=== PATIENT | male | born 1960 | race Caucasian/White ===

== ENCOUNTER 2022-01-23 14:54 | Inpatient (IN) | payer OTHER ==
[~2022-01-23] VITALS: Ht 185.4 cm; Wt 110.2 kg
[2022-01-23 16:37] LABS: Influenza A, PCR NEGATIVE (NEGATIVE); Influenza B, PCR NEGATIVE (NEGATIVE); Resp Syncytial Virus, PCR NEGATIVE (NEGATIVE); SARS-Cov-2 (COVID-19) PCR, MMC NEGATIVE (NEGATIVE)
[2022-01-23 17:09] LABS: BASOPHILS ABSOLUTE AUTO 0.05 K/mm3 (0.00-0.23); BASOPHILS PERCENT AUTO 1 % (0-2); EOSINOPHILS ABSOLUTE AUTO 0.05 K/mm3 (0.00-0.68); EOSINOPHILS PERCENT AUTO 1 % (0-6); Hematocrit 44.9 % (37.0-53.0); Hemoglobin 15.6 g/dL (13.5-17.5); IMMATURE GRAN ABSOLUTE AUTO 0.09 K/mm3 (0.00-0.10); IMMATURE GRAN PERCENT AUTO 1 % (0-1); LYMPHOCYTES ABSOLUTE AUTO 1.51 K/mm3 (0.84-5.20); LYMPHOCYTES PERCENT AUTO 17 % (21-46); MONOCYTES ABSOLUTE AUTO 0.49 K/mm3 (0.16-1.47); MONOCYTES PERCENT AUTO 6 % (4-13); Mean Corpuscular HGB 31.5 pg (26.0-34.0); Mean Corpuscular HGB Conc 34.7 g/dL (31.5-36.5); Mean Corpuscular Volume 91 fL (80-100); Mean Platelet Volume 11.1 fL (9.1-12.4); NEUTROPHILS ABSOLUTE AUTO 6.73 K/mm3 (1.96-9.15); NEUTROPHILS PERCENT AUTO 75 % (41-73); Platelet Count 230 K/mm3 (150-400); RDW Coefficient Variation 13.4 % (11.7-14.2); RDW Standard Deviation 44.6 fL (35.1-46.3); Red Blood Cell Count 4.96 M/mm3 (4.30-5.90); White Blood Cell Count 8.92 K/mm3 (4.00-11.30)
[2022-01-23 17:27] LABS: Albumin, Blood 3.5 g/dL (3.4-5.0); Albumin/Globulin Ratio 0.9 (0.8-1.8); Bilirubin, Total 0.8 mg/dL (0.1-1.0); Bun/Creatinine Ratio 18.3 (12.0-20.0); Calcium, Blood 9.2 mg/dL (8.5-10.1); Creatinine, Blood 1.97 mg/dL (0.60-1.20); Globulin, Blood 3.8 g/dL (2.2-4.0); Potassium, Blood 3.9 mmol/L (3.5-5.5); Total Protein, Blood 7.3 g/dL (6.4-8.2)
[2022-01-23 18:55] LABS: Source, Urine Clean Catch
[2022-01-23 18:59] LABS: Appearance, Urine Clear (Clear); Bilirubin, Urine Neg (Neg); Blood, Urine Neg (Neg); Color, Urine Yellow (P-Yellow); Glucose Qualitative, Urine 4+ (Neg); Ketones, Urine Neg (Neg); Leukocyte Esterase, Urine Neg (Neg); Nitrite, Urine Neg (Neg); Protein, Urine Neg (Neg); Specific Gravity, Urine 1.015 (1.003-1.022); Urobilinogen, Urine NORM (Normal)
[2022-01-23 20:34] LABS: Base Excess Venous 7.7 mmol/L; Bicarbonate Venous 29.2 mmol/L (24.0-30.0); PCO2 Venous 59.2 mmHg (38-42); pH Blood Venous 7.36 (7.34-7.37)
[2022-01-23] MEDS ORDERED: HYDCHL12.5 PO (23:24)
[2022-01-23] MEDS ORDERED: AMLO10 PO (23:24)
[2022-01-23] MEDS ORDERED: CARV25 PO (23:24)
[2022-01-23] MEDS ORDERED: EUTHYROX125 MCG PO (23:25)
[2022-01-23] MEDS ORDERED: LOSA50 PO (23:25)
[2022-01-23] MEDS ORDERED: ALBU90OI INH (23:26)
[2022-01-23] MEDS ORDERED: NAPROXEN125 MG/5 M PO (23:26)
[2022-01-24 00:58] LABS: Anion Gap 8 mmol/L (6-16); Blood Urea Nitrogen 35 mg/dL (8-24); Bun/Creatinine Ratio 20.2 (12.0-20.0); CO2, Blood 29 mmol/L (21-32); Calcium, Blood 8.1 mg/dL (8.5-10.1); Chloride, Blood 89 mmol/L (98-108); Cholesterol 241 mg/dL (50-200); Creatinine, Blood 1.73 mg/dL (0.60-1.20); Glomerular Filtration Rate 44 (60-); Glucose, Blood 479 mg/dL (70-99); Magnesium, Blood 2.8 mg/dL (1.6-2.4); Phosphorus, Blood 3.1 mg/dL (2.5-4.9); Potassium, Blood 2.9 mmol/L (3.5-5.5); Sodium, Blood 126 mmol/L (136-145)
[2022-01-24 01:12] LABS: CHOL/HDL RATIO Unable to Calculate; LDL/HDL RATIO Unable to Calculate; Low Density Lipoprotein Chol Unable to Calculate mg/dL (0-110); Triglycerides 1275 mg/dL (30-160); Very Low Density Lipoprot Chol Unable to Calculate mg/dL (6-32)
[2022-01-24 04:11] LABS: BASOPHILS ABSOLUTE AUTO 0.05 K/mm3 (0.00-0.23); BASOPHILS PERCENT AUTO 1 % (0-2); EOSINOPHILS ABSOLUTE AUTO 0.07 K/mm3 (0.00-0.68); EOSINOPHILS PERCENT AUTO 1 % (0-6); Hemoglobin 13.4 g/dL (13.5-17.5); IMMATURE GRAN ABSOLUTE AUTO 0.09 K/mm3 (0.00-0.10); IMMATURE GRAN PERCENT AUTO 1 % (0-1); LYMPHOCYTES ABSOLUTE AUTO 1.44 K/mm3 (0.84-5.20); LYMPHOCYTES PERCENT AUTO 19 % (21-46); MONOCYTES ABSOLUTE AUTO 0.44 K/mm3 (0.16-1.47); MONOCYTES PERCENT AUTO 6 % (4-13); Mean Corpuscular HGB 31.8 pg (26.0-34.0); Mean Corpuscular HGB Conc 35.3 g/dL (31.5-36.5); Mean Corpuscular Volume 90 fL (80-100); Mean Platelet Volume 10.8 fL (9.1-12.4); NEUTROPHILS ABSOLUTE AUTO 5.58 K/mm3 (1.96-9.15); NEUTROPHILS PERCENT AUTO 73 % (41-73); Platelet Count 187 K/mm3 (150-400); RDW Coefficient Variation 13.4 % (11.7-14.2); RDW Standard Deviation 44.1 fL (35.1-46.3); Red Blood Cell Count 4.21 M/mm3 (4.30-5.90); White Blood Cell Count 7.67 K/mm3 (4.00-11.30)
[2022-01-24 04:28] LABS: Bun/Creatinine Ratio 22.4 (12.0-20.0); Calcium, Blood 8.1 mg/dL (8.5-10.1); Creatinine, Blood 1.56 mg/dL (0.60-1.20); Potassium, Blood 2.9 mmol/L (3.5-5.5)
--- NOTE | 2022-01-24 04:51 | NUR ---
ASSUMTION OF CARE RECIEVED PT FROM ED AT 2350 FROM [facility]. INSULIN WAS AT 5 UNITS/HR.PT AMBULATED FROM STRETCHER TO BED PT IS PLEASENT AND APPRICIATIVE. SEE FLOW SHEET FOR FULL ASSESMENT
--- NOTE | 2022-01-24 05:56 | NUR ---
SHIFT SUMMARY pT NEWLY DIAGNOSED WITH DIABETIES CAME INTO ED AFTER SISTER TEST HIS BLOOD SUGAR AT HOME AND IT WAS > THAN THE MEETER COULD READ HIS BS WAS 707 ON IN ED. PT WAS STARTED ON AN INSULIN DRIP AND GIVEN A TOTAL OF 4L NS FOR HYDRATION PT POTASIUM IS BEING REPLACED IV AND PO WAS ALSO GIVEN. BS ON LAS T CHECK WAS 278 AND PLAN IS TO TRANSISTION HIM TO SQ AFTER HE FALLS BELOW 250. PT IS A&O X4 FITCH RESPIRATORY PT WAS PLACED ON 2L AND INCREASE TO 4L AFTER FALLING ASLEEP AND DESATURATIONS TO MID 80'S AND WITNESS PERIOD OF APNEA. HE CURRENTLY IS SATING 90. PT BLOOD PRESSURE HAS BEEN IN LOW 90'S SYSTOLIC BUT MAP HAS BEEN >65. WILL CONTINUE TO MONITOR AND REPORT OF TO ONCOMING SHIFT
[2022-01-24 08:21] LABS: Bun/Creatinine Ratio 20.1 (12.0-20.0); Calcium, Blood 8.5 mg/dL (8.5-10.1); Creatinine, Blood 1.54 mg/dL (0.60-1.20); Potassium, Blood 3.1 mmol/L (3.5-5.5)
--- NOTE | 2022-01-24 09:38 | NUR ---
ASSUMED CARE REPORT FROM TRINH KLEIN AT 0700. PT RESTING IN BED. WAKES c VERBAL STIMULI. FOLLOWS DIRECTIONS. DENIES COMPLAINTS. INSULIN GTT INFUSING AT SHIFT CHANGE, CHEMBG 215, CALLED DR LEE, INSULIN PLACED ON STANDBY, KYLE ORDERED. PT TOLERATED BREAKFAST WELL. DENIES N/V. ABD ROUND, SOFT, NON TENDER. SB ON MONITOR, RATE 50'S. BP STABLE. LUNGS CLEAR. INDEPENDENT IN ROOM. KCL INFUSING. WILL CONTINUE TO MONITOR.
[2022-01-24 13:23] LABS: Bun/Creatinine Ratio 22.8 (12.0-20.0); Calcium, Blood 8.5 mg/dL (8.5-10.1); Creatinine, Blood 1.49 mg/dL (0.60-1.20); Potassium, Blood 4.2 mmol/L (3.5-5.5)
--- NOTE | 2022-01-24 15:09 | NUR ---
Pt. is aweake in bed and welcomes my visit. Pts. sister is present. Pt. is alert and pleasant. Establish rapport and facilitate a life review. Pt. is new to the community and was asking many questions. Considered many issues of madisyn and belief. Pt. displayed evidence of engagement responsibility, and awareness of the serious nature of his "sudden" illness. Prayed with Pt. and sister. Both verbalized gratitude for the spiritual care visit.
[2022-01-24 16:19] LABS: Bun/Creatinine Ratio 23.7 (12.0-20.0); Calcium, Blood 8.8 mg/dL (8.5-10.1); Creatinine, Blood 1.35 mg/dL (0.60-1.20); Magnesium, Blood 2.7 mg/dL (1.6-2.4); Phosphorus, Blood 2.5 mg/dL (2.5-4.9); Potassium, Blood 4.3 mmol/L (3.5-5.5)
--- NOTE | 2022-01-24 17:18 | NUR ---
SHIFT SUMMARY/TRANSFER TO PCU NO ACUTE CHANGES THIS SHIFT, TRANSITIONED TO [facility] AND SS COVERAGE. INCREASED BOTH D/T ELEVATED CGB. PT TOLERATING MEALS WELL. INDEPENDENT IN ROOM. SR, RATE 70'S. BP STABLE, HTN MEDS HELD. REPORT TO ASPEN KLEIN. PT TRANSFERRED c ALL BELONGINGS.
--- NOTE | 2022-01-24 18:12 | NUR ---
Pt arrived to PCU 8; alert, oriented, and pleasantly conversant. Eating and drinking well.
--- NOTE | 2022-01-24 18:26 | NUR ---
CBG continues to trend down. Orders to cover ACHS.
--- NOTE | 2022-01-24 18:54 | NUR ---
MET WITH PT TANYA TO REVIEW POLST. PT IS MORE INTERESTED IN FILLING OUT AN ADVANCE DIRECTIVE TO MAKE VERY SPECIFIC CHOICES FOR HIMSELF REGARDING FEEDING TUBES, ETC AT END OF LIFE. HE WAS GETTING READY TO MOVE FROM ICU TO PCU AND FINISHING DINNER, SO WE'RE GOING TO MEET TOMORROW MORNING INSTEAD.
[2022-01-25 05:12] LABS: BASOPHILS ABSOLUTE AUTO 0.06 K/mm3 (0.00-0.23); BASOPHILS PERCENT AUTO 1 % (0-2); EOSINOPHILS ABSOLUTE AUTO 0.07 K/mm3 (0.00-0.68); EOSINOPHILS PERCENT AUTO 1 % (0-6); Hematocrit 41.8 % (37.0-53.0); Hemoglobin 14.2 g/dL (13.5-17.5); IMMATURE GRAN ABSOLUTE AUTO 0.13 K/mm3 (0.00-0.10); IMMATURE GRAN PERCENT AUTO 3 % (0-1); LYMPHOCYTES ABSOLUTE AUTO 1.48 K/mm3 (0.84-5.20); LYMPHOCYTES PERCENT AUTO 28 % (21-46); MONOCYTES ABSOLUTE AUTO 0.32 K/mm3 (0.16-1.47); MONOCYTES PERCENT AUTO 6 % (4-13); Mean Corpuscular HGB 31.6 pg (26.0-34.0); Mean Corpuscular Volume 93 fL (80-100); NEUTROPHILS ABSOLUTE AUTO 3.18 K/mm3 (1.96-9.15); NEUTROPHILS PERCENT AUTO 61 % (41-73); Platelet Count 187 K/mm3 (150-400); RDW Coefficient Variation 13.5 % (11.7-14.2); Red Blood Cell Count 4.49 M/mm3 (4.30-5.90); White Blood Cell Count 5.24 K/mm3 (4.00-11.30)
[2022-01-25 05:53] LABS: Albumin, Blood 2.7 g/dL (3.4-5.0); Albumin/Globulin Ratio 0.8 (0.8-1.8); Bilirubin, Total 0.4 mg/dL (0.1-1.0); Bun/Creatinine Ratio 19.1 (12.0-20.0); Calcium, Blood 8.9 mg/dL (8.5-10.1); Creatinine, Blood 1.31 mg/dL (0.60-1.20); Globulin, Blood 3.2 g/dL (2.2-4.0); Magnesium, Blood 2.3 mg/dL (1.6-2.4); Phosphorus, Blood 2.8 mg/dL (2.5-4.9); Potassium, Blood 3.2 mmol/L (3.5-5.5); Total Protein, Blood 5.9 g/dL (6.4-8.2)
--- NOTE | 2022-01-25 06:00 | NUR ---
NOC SHIFT SUMMARY PT SLEPT WELL OVERNIGHT, ORIENTED X4, VSS PER PT TREND ON RA. NO COMPLAINTS OF PAIN OR DISCOMFORT. UAL IN ROOM, USING URINAL APPROPRIATELY FOR ACCURATE I/Os. SR/SB ON CONTINOUS REELING OPERATOR. ASKING QUESTIONS APPROPRIATELY ABOUT ADA DIET AND DIABETIC EDUATION. EDUCATION GIVEN. WILL CONTINUE TO MONITOR AND PASS TO DAY RN.
--- NOTE | 2022-01-25 11:40 | NUR ---
Spiritual care visit conducted. Pt is lying in bed and alert. Pt immediately tells me about his spiritual journey, his struggle with Meth. abuse and his reason for his recent move to [place] from [facility]. He becomes energized as he talks about his miraculous conversion back to his childhood [employer] madisyn. He explains about his deep connection with God and how that connection guides who he is and how he lives. Pt touches on his medical concerns but then jumps right back to discussing how his medical issues align with what he believes God is doing in the situation. I notice no spiritual distress and see that discussion about his madisyn is energizing and uplifting for him. I will continue to remain available to pt and family.
--- NOTE | 2022-01-25 16:15 | NUR ---
Pt has had better controlled blood sugars this afternoon, below 400, but not less than 300. He remains alert, oriented, cooperative and pleasantly conversant. Ambulatory independently in the room as well as in the hallway occasionally. Eating and drinking well. Asks for snacks in between meals.
[2022-01-26 05:36] LABS: Bun/Creatinine Ratio 15.6 (12.0-20.0); Calcium, Blood 8.4 mg/dL (8.5-10.1); Creatinine, Blood 1.28 mg/dL (0.60-1.20); Magnesium, Blood 1.8 mg/dL (1.6-2.4); Potassium, Blood 3.6 mmol/L (3.5-5.5)
--- NOTE | 2022-01-26 06:46 | NUR ---
NOC SHIFT SUMMARY PT SLEPT WELL OVERNIGHT, ORIENTED X4. NO COMPLAINTS OF PAIN OR DISCOMFORT. ON RA. VSS PER PT TREND. UAL IN ROOM. PT GAVE OWN INSULIN SHOT LAST NIGHT AFTER EDUCATION RECEIVED. WILL CONTINUE TO MONITOR AND PASS ON TO DAY RN
--- NOTE | 2022-01-26 09:00 | NUR ---
Pt awake, alert, pleasantly conversant without any complaints or voiced concerns. Demonstrated correct administration and understanding of insulin this morning, as well as yesterday. States he feels ready to go home. Pharmacy of choice is [facility]. STates that his sister has a provider here in town who is also able to take him as a client.
[2022-01-26] MEDS ORDERED: DOCU100 PO (10:05)
[2022-01-26] MEDS ORDERED: ACET325 PO (10:05)
[2022-01-26] MEDS ORDERED: GUAI600T33 PO (10:07)
[2022-01-26] MEDS ORDERED: INSULANI SC (10:17)
[2022-01-26] MEDS ORDERED: HUMULIN R100 UNIT/1 SC (10:19)
[2022-01-26] MEDS ORDERED: METF500 PO (10:20)
[2022-01-26] MEDS ORDERED: ONDA4ODT MM (10:20)
[2022-01-26] MEDS ORDERED: VISBIOME 112.51 EACH PO (10:25)
[2022-01-26] MEDS ORDERED: ATOR10 PO (11:13)
== END 2022-01-26 13:00 | disposition home or self-care (01) | DRG 638 ==
LOC: ER 14:54 → ICUW 22:24 → PCU 01-24 18:07
PROVIDERS: Emergency Medicine; Family Medicine; Physician Assistant; ADMIT Internal Medicine
DX: E11.00 Type 2 diabetes mellitus with hyperosmolarity without nonketotic hyperglycemic-hyperosmolar coma (NKHHC) (principal); N17.9 Acute kidney failure, unspecified; J44.9 Chronic obstructive pulmonary disease, unspecified; J20.9 Acute bronchitis, unspecified; I10 Essential (primary) hypertension; Z87.891 Personal history of nicotine dependence; Z20.822 Contact with and (suspected) exposure to COVID-19; Z98.42 Cataract extraction status, left eye; Z98.41 Cataract extraction status, right eye; Z98.890 Other specified postprocedural states; E66.9 Obesity, unspecified; E11.69 Type 2 diabetes mellitus with other specified complication; R05.3 Chronic cough; F41.9 Anxiety disorder, unspecified; Z68.31 Body mass index [BMI] 31.0-31.9, adult
CPT/HCPCS: 0241U; 36415; 71046; 80048; 80053; 80061; 81003; 82803; 82947; 83036; 83735; 83930; 84100; 84145; 85025; 94640; 94664; 94760; 94762; 96365; 96367; 96375; 99285-25; A9270; J0456; J0696; J1644; J1815; J3475; J3480; J7030; J7050

== ENCOUNTER 2022-05-25 17:15 | Inpatient (IN) | payer OTHER ==
[~2022-05-25] VITALS: Ht 188 cm; Wt 106.3 kg
[~2022-05-25 17:15] MED LIST: ACET325 PO; ALBU90OI INH; AMLO10 PO; ATOR10 PO; CARV25 PO; DOCU100 PO; EUTHYROX125 MCG PO; GUAI600T33 PO; HUMULIN R100 UNIT/1 SC; HYDCHL12.5 PO; INSULANI SC; LOSA50 PO; METF500 PO; NAPROXEN125 MG/5 M PO; ONDA4ODT MM; VISBIOME 112.51 EACH PO
[2022-05-25 18:16] LABS: BASOPHILS ABSOLUTE AUTO 0.03 K/mm3 (0.00-0.23); BASOPHILS PERCENT AUTO 0 % (0-2); EOSINOPHILS ABSOLUTE AUTO 0.07 K/mm3 (0.00-0.68); EOSINOPHILS PERCENT AUTO 1 % (0-6); Hematocrit 40.1 % (37.0-53.0); Hemoglobin 13.9 g/dL (13.5-17.5); IMMATURE GRAN ABSOLUTE AUTO 0.09 K/mm3 (0.00-0.10); IMMATURE GRAN PERCENT AUTO 1 % (0-1); LYMPHOCYTES ABSOLUTE AUTO 2.28 K/mm3 (0.84-5.20); LYMPHOCYTES PERCENT AUTO 16 % (21-46); MONOCYTES ABSOLUTE AUTO 0.71 K/mm3 (0.16-1.47); MONOCYTES PERCENT AUTO 5 % (4-13); Mean Corpuscular HGB 30.7 pg (26.0-34.0); Mean Corpuscular HGB Conc 34.7 g/dL (31.5-36.5); Mean Corpuscular Volume 89 fL (80-100); Mean Platelet Volume 9.9 fL (9.1-12.4); NEUTROPHILS ABSOLUTE AUTO 11.43 K/mm3 (1.96-9.15); NEUTROPHILS PERCENT AUTO 78 % (41-73); Platelet Count 224 K/mm3 (150-400); RDW Coefficient Variation 13.5 % (11.7-14.2); Red Blood Cell Count 4.53 M/mm3 (4.30-5.90); White Blood Cell Count 14.61 K/mm3 (4.00-11.30)
[2022-05-25 18:31] LABS: Albumin, Blood 3.4 g/dL (3.4-5.0); Albumin/Globulin Ratio 0.9 (0.8-1.8); Bilirubin, Total 0.4 mg/dL (0.1-1.0); Bun/Creatinine Ratio 19.1 (12.0-20.0); Calcium, Blood 8.6 mg/dL (8.5-10.1); Creatinine, Blood 1.62 mg/dL (0.60-1.20); Globulin, Blood 3.8 g/dL (2.2-4.0); Potassium, Blood 3.4 mmol/L (3.5-5.5); Total Protein, Blood 7.2 g/dL (6.4-8.2)
[2022-05-25 20:53] LABS: Influenza B, PCR NEGATIVE (NEGATIVE); Resp Syncytial Virus, PCR NEGATIVE (NEGATIVE); SARS-Cov-2 (COVID-19) PCR, MMC NEGATIVE (NEGATIVE)
[2022-05-25 21:01] LABS: Influenza A, PCR POSITIVE (NEGATIVE)
[2022-05-25] MEDS ORDERED: AMLO10 PO (21:59)
[2022-05-25] MEDS ORDERED: ASPI81CH PO (22:05)
[2022-05-25 22:24] LABS: Source, Urine Clean Catch
[2022-05-25 22:28] LABS: Bilirubin, Urine Neg (Neg); Blood, Urine Neg (Neg); Glucose Qualitative, Urine Neg (Neg); Ketones, Urine Neg (Neg); Leukocyte Esterase, Urine Neg (Neg); Nitrite, Urine Neg (Neg); Protein, Urine 2+ (Neg); Specific Gravity, Urine 1.025 (1.003-1.022); Urobilinogen, Urine NORM (Normal)
[2022-05-25 22:35] LABS: Appearance, Urine Clear (Clear); Color, Urine Amber (P-Yellow)
[2022-05-25 22:36] LABS: Bacteria Rare /hpf; Red Blood Cells, Urine Not Seen /hpf (0-2); Squamous Epithelial Cells Rare /hpf (Few); White Blood Cells, Urine 0-2 /hpf (0-5)
[2022-05-25 22:37] LABS: Amorphous Light (0-Heavy)
--- NOTE | 2022-05-26 05:40 | NUR ---
NEW ADMIT/NATURAL HISTORY COLLECTIONS CURATOR SUMMARY PT ARRIVED T/ROOM AT 2335 IN WHEELCHAIR; XFERED T/BED INDEPENDENTLY. PT ON 3L OF O2 NC (NO OXYGEN AT HOME IS BASELINE). A/OX4. PLEASANT AND COOPERATIVE. PT ADMIT F/LLL PNEMONIA AND FLU POSITIVE. PT HAS BEEN COUGHING UP MODERATE SPUTUM PER PT REPORT. RECENT DX OF DMT2. INDEPENDENT IN THE ROOM. PT ON TELE--NORMAL SINUS IN THE 70'S. ORIENTED PT T/ROOM AND CALL LIGHT. ABLE TO ADVOCATE F/NEEDS. CALL LIGHT IN REACH.
[2022-05-26 05:46] LABS: Hematocrit 38.6 % (37.0-53.0); Hemoglobin 12.9 g/dL (13.5-17.5); Mean Corpuscular HGB 30.4 pg (26.0-34.0); Mean Corpuscular HGB Conc 33.4 g/dL (31.5-36.5); Mean Corpuscular Volume 91 fL (80-100); Mean Platelet Volume 9.7 fL (9.1-12.4); Platelet Count 192 K/mm3 (150-400); RDW Coefficient Variation 13.6 % (11.7-14.2); RDW Standard Deviation 45.5 fL (35.1-46.3); Red Blood Cell Count 4.24 M/mm3 (4.30-5.90); White Blood Cell Count 9.72 K/mm3 (4.00-11.30)
[2022-05-26 06:15] LABS: Albumin/Globulin Ratio 0.8 (0.8-1.8); Bilirubin, Total 0.3 mg/dL (0.1-1.0); Bun/Creatinine Ratio 23.9 (12.0-20.0); Calcium, Blood 8.4 mg/dL (8.5-10.1); Creatinine, Blood 1.38 mg/dL (0.60-1.20); Magnesium, Blood 2.1 mg/dL (1.6-2.4); Potassium, Blood 3.9 mmol/L (3.5-5.5)
[2022-05-26 06:52] LABS: BAND PERCENT MAN 7 % (0-8); BASOPHILS ABSOLUTE MAN 0.09 K/mm3 (0.00-0.23); BASOPHILS PERCENT MAN 1 % (0-2); EOSINOPHILS PERCENT MAN 0 % (0-6); LYMPHOCYTES ABSOLUTE MAN 0.87 K/mm3 (0.84-5.20); LYMPHOCYTES PERCENT MAN 9 % (21-46); MONOCYTES PERCENT MAN 0 % (4-13); NEUTROPHILS ABSOLUTE MAN 8.74 K/mm3 (1.96-9.15); SEG NEUTROPHILS PERCENT MAN 83 % (41-73); TOTAL CELLS COUNTED 100
--- NOTE | 2022-05-26 12:19 | NUR ---
DR. CAMARILLO [facility] PT STATES HE TAKES 25 LONG ACTING @ HOME REPORTED TO
--- NOTE | 2022-05-26 19:27 | NUR ---
SHIFT SUMMARY PT A&OX4 AND IN PLEASENT MOOD T/O SHIFT. THIS RN NOTIFIED DRJohnnie OF PT CONCERN W/ IN PATIENT MED SCHEDULE VS HOME MED SCHED- PLANNED TO SEE PT IN PERSON PER PT REQUEST. CALL LIGHT W/IN REACH. VSS- HTN NOTED, PT STATES HE NORMALLY TAKES HYDROCLORATHIAZIDE IN THE EVENINGS. NIGHT RN PLANS TO NOTIFY DR IF HTN CONTINUES-THIS RN ADMINISTERED ORDERED COREG. PT TALKATIVE AND JOKES W/ STAFF. RESTING IN BED T/O SHIFT, UP TO CHAIR.
--- NOTE | 2022-05-27 04:58 | NUR ---
TRAFFIC SURVEY TECHNICIAN SUMMARY PT VERY WAKEFUL T/O THE NIGHT. PT BP ELEVATED FROM [facility]LINE AND REQUESTED HIS REGULARLY PRESCRIBED HTZ 12.5MG AT NIGHT--CALL TO DR GARCIA; APPROVED ORDER AND ENTERED ONE FOR NOW AND START TOMORROW IN AM. PT REQ THIS MED ALWAYS BE GIVEN AT NIGHT. WILL NEED TO FOLLOW UP TO CORRECT DOSAGE TIME. AT 0330 PT C/O DRY NASAL AND NOT BEING ABLE TO SLEEP. ADVISED WOULD FOLLOW UP WITH LATER IN MORNING/DAY; OFFERED [facility]; PT AGREEABLE. PT C/O OF ANXIETY AND REQ BS CHECK--BS WAS 229. PT INDEPENDENT IN ROOM; A/OX4. ABLE TO MAKE NEEDS KNOWN. CALL LIGHT IN REACH.
[2022-05-27 05:04] LABS: Hematocrit 38.2 % (37.0-53.0); Hemoglobin 13.1 g/dL (13.5-17.5); Mean Corpuscular HGB 30.3 pg (26.0-34.0); Mean Corpuscular HGB Conc 34.3 g/dL (31.5-36.5); Mean Corpuscular Volume 88 fL (80-100); Platelet Count 224 K/mm3 (150-400); RDW Coefficient Variation 13.2 % (11.7-14.2); RDW Standard Deviation 43.3 fL (35.1-46.3); Red Blood Cell Count 4.32 M/mm3 (4.30-5.90)
[2022-05-27 06:02] LABS: Albumin, Blood 3.1 g/dL (3.4-5.0); Albumin/Globulin Ratio 0.8 (0.8-1.8); Bilirubin, Total 0.4 mg/dL (0.1-1.0); Bun/Creatinine Ratio 24.3 (12.0-20.0); Calcium, Blood 8.4 mg/dL (8.5-10.1); Creatinine, Blood 1.07 mg/dL (0.60-1.20); Globulin, Blood 4.1 g/dL (2.2-4.0); Potassium, Blood 4.1 mmol/L (3.5-5.5); Total Protein, Blood 7.2 g/dL (6.4-8.2)
--- NOTE | 2022-05-27 17:42 | NUR ---
SHIFT SUMMARY PT A&OX4, MOOD UP AND DOWN T/O SHIFT. PT MAKING MULTIPLE REQUESTS T/O SHIFT- C/O FOOD PRESENTATION, C/O MEDICATION SCHEDULE. VSS. CALL LIGHT W/IN REACH. TOLERATING PO INTAKE WELL. TELE IN PLACE, REPORTED ABNORM TO DR-PLAN FOR OUT PT SLEEP STUDY. 2L HUMIDIFIED NC @ THIS TIME. MELATONIN ADDED FOR SLEEP AID.
--- NOTE | 2022-05-28 04:32 | NUR ---
PROGRAM DIRECTOR/TRAFFIC DIRECTOR SUMMARY PT HAS PERIODS OF REST AND WAKEFULLNESS T/O THE NIGHT. GAVE PRN MELATONIN--PT SLEPT MORE THAN THE PREVIOUS NIGHT. PT REQ STOOL SOFTNER; NO BM F/TWO DAYS. PT HAS COLACE PRN BID--WILL ADVISE DAY SHIFT T/OFFER W/899 MEDS. PT HS BLOOD SUGAR 290--PT STATES BS HAS BEEN HIGHER THAN NORMAL AND ATTRIBUTES TO NOT TAKING METFORMIN. ADVISED PT ILLNESS AND STEROIDS CAN DRIVE BS. PT REMAINS ON TELE--TECH CALLED TO ADVISE OF SHORT EPISOIDES IN THE 30'S AND 40'S. HAPPENS DURING PT SLEEP; HAS BEEN RUNNING SINUS ONOFRE IN THE 50'S CONSISTANTLY. PLANS F/OUTPATIENT SLEEP STUDY AFTER DISCHARGE. ON 2L HUMIDIFIED O2 NC. PT ABLE TO MAKE NEEDS KNOWN. CALL LIGHT IN REACH. LIGHT IN REACH.
[2022-05-28 05:26] LABS: Albumin, Blood 2.8 g/dL (3.4-5.0); Albumin/Globulin Ratio 0.8 (0.8-1.8); Bilirubin, Total 0.3 mg/dL (0.1-1.0); Bun/Creatinine Ratio 26.9 (12.0-20.0); Calcium, Blood 8.3 mg/dL (8.5-10.1); Creatinine, Blood 1.08 mg/dL (0.60-1.20); Globulin, Blood 3.5 g/dL (2.2-4.0); Potassium, Blood 3.1 mmol/L (3.5-5.5); Total Protein, Blood 6.3 g/dL (6.4-8.2)
--- NOTE | 2022-05-28 07:31 | NUR ---
RECIEVED A CALL FROM TELE- PT HR HAS BEEN ONOFRE ALL NIGHT, HOWEVER THIS MORNING HE IS RUNNING MID 40'S AND DROPPING DOWN INTO THE UPPER 30'S WITH A 1ST DEGREE BLOCK. SPOKE TO DR HOLLINGSWORTH AND SHE IS AWARE AWAITING FLUID ORDERS AT THIS TIME. WILL CTM. PT IS C/O BRAIN FOG AND A SMALL HEADACHE.
[2022-05-28] MEDS ORDERED: ASPI81CH PO (17:26)
[2022-05-28] MEDS ORDERED: DELTASONE20 MG PO (17:27)
[2022-05-28] MEDS ORDERED: AMOX875 PO (17:27)
[2022-05-28] MEDS ORDERED: OSEL75CA PO (17:31)
--- NOTE | 2022-05-28 18:23 | NUR ---
DISCHARGE NOTE- PT WAS GIVEN VERBAL AND WRITTEN DISCHARGE INSTRUCTIONS AND ACKNOWLEDGED UNDERSTANDING OF THEM. MEDS FAXED TO [facility] PER PT REQUEST. PT IV AND TELE DC'D AT THE TIME OF DISCHARGE NO S&S OF DISTRESS NOTED AT THE TIME OF DISCHARGE. PT ESCORTED OUT VIA WC BY THE [facility] [employer] [facility] PORTABLE O2 HAD ALREADY BEEN DELIVERED PT TAKING IT WITH HIM.
== END 2022-05-28 18:23 | disposition home or self-care (01) | DRG 193 ==
LOC: ER 17:15 → MEDS 22:26
PROVIDERS: Family Medicine; Student in an Organized Health Care Education/Training Program; ADMIT Hospitalist
DX: J10.01 Influenza due to other identified influenza virus with the same other identified influenza virus pneumonia (principal); J96.21 Acute and chronic respiratory failure with hypoxia; J44.0 Chronic obstructive pulmonary disease with (acute) lower respiratory infection; N17.9 Acute kidney failure, unspecified; J44.1 Chronic obstructive pulmonary disease with (acute) exacerbation; J15.9 Unspecified bacterial pneumonia; E11.22 Type 2 diabetes mellitus with diabetic chronic kidney disease; I12.9 Hypertensive chronic kidney disease with stage 1 through stage 4 chronic kidney disease, or unspecified chronic kidney disease; E87.6 Hypokalemia; Z87.891 Personal history of nicotine dependence; Z79.899 Other long term (current) drug therapy; Z79.4 Long term (current) use of insulin; Z20.822 Contact with and (suspected) exposure to COVID-19; Z28.21 Immunization not carried out because of patient refusal; N18.9 Chronic kidney disease, unspecified
CPT/HCPCS: 0241U; 36415; 71046; 80053; 81001; 82947; 83036; 83605; 83735; 84484; 85025; 85027; 87040; 93005; 93010; 94640; 94760; 94761; 97162; 97530; A9270; J0456; J0696; J1650; J1815; J2920; J2930; J7040; J7050

== ENCOUNTER 2022-09-05 06:57 | Day surgery (SDC) | payer OTHER ==
[~2022-09-05] VITALS: Ht 188 cm; Wt 112.4 kg
[~2022-09-05 06:57] MED LIST changes: +AMOX875 PO; +ASPI81CH PO; +COMBIVENT RESPIM4 G1; +DELTASONE20 MG PO; +FLUT.05NI; +FLUT1DIS2 INH; +OSEL75CA PO
--- NOTE | 2022-09-05 08:53 | NUR ---
09/05/22 08Alexandria Servin HISTORY, CHART, MEDICATIONS AND ALLERGIES REVIEWED BEFORE START OF PROCEDURE. PATIENT CONFIRMS NPO STATUS AND AGREES WITH SCHEDULED PROCEDURE. 3-LEAD EKG REVIEWED WITH PHYSICIAN PRIOR TO START OF PROCEDURE. MONITOR INTACT WITH CONTINUOUS PULSE OXIMETRY,CAPNOGRAPHY, 3-LEAD EKG, INTERMITTENT BP. SUPPLEMENTAL O2 TO BE TITRATED THROUGHOUT PROCEDURE TO MAINTAIN O2 SATURATION ABOVE 90%. PATIENT DETERMINED TO BE ASA APPROPRIATE FOR PROPOFOL SEDATION PRIOR TO START OF PROCEDURE BY DR. GUTIERREZ.
--- NOTE | 2022-09-05 10:32 | NUR ---
Patient up to Ambulate independently. Gait steady. Discharge instructions reviewed with patient. Patient verbalizes understanding. Copy given to patient to take home. Discharged via wheelchair to private car for ride home WITH SISTER.
== END 2022-09-05 22:39 | disposition home or self-care (01) ==
LOC: ORSCMMR 06:57 → ORD 09:00 → ORSCMMR 09:00
PROVIDERS: Internal Medicine Gastroenterology
PROC: 0DBH8ZX Excision of Cecum, Via Natural or Artificial Opening Endoscopic, Diagnostic (ICD-10-PCS; principal; 2022-09-05 09:00)
PROC: 0DBK8ZX Excision of Ascending Colon, Via Natural or Artificial Opening Endoscopic, Diagnostic (ICD-10-PCS; principal; 2022-09-05 09:00)
PROC: 0DBL8ZX Excision of Transverse Colon, Via Natural or Artificial Opening Endoscopic, Diagnostic (ICD-10-PCS; principal; 2022-09-05 09:00)
DX: Z12.11 Encounter for screening for malignant neoplasm of colon (principal); D12.3 Benign neoplasm of transverse colon; D12.2 Benign neoplasm of ascending colon; D12.0 Benign neoplasm of cecum; E11.9 Type 2 diabetes mellitus without complications; I10 Essential (primary) hypertension; E03.9 Hypothyroidism, unspecified; Z79.899 Other long term (current) drug therapy
CPT/HCPCS: 82947; 88305; J2704; J7120

== ENCOUNTER 2023-01-23 07:10 | Day surgery (SDC) | payer OTHER ==
[~2023-01-23] VITALS: Ht 185.4 cm; Wt 103.9 kg
[2023-01-23] VITALS (36 sets, daily range): BP systolic 90–130; BP diastolic 64–96
--- NOTE | 2023-01-23 07:54 | NUR ---
Pre-Op teaching done. Pt verbalizes understanding. History, Chart, Medications and Allergies reviewed before start of procedure. Lungs clear T/O to Auscultation. Patient States Post-Procedure ride home has been arranged.
--- NOTE | 2023-01-23 08:06 | NUR ---
01/23/23 0806 Alexandria Aleman HISTORY, CHART, MEDICATIONS AND ALLERGIES REVIEWED BEFORE START OF PROCEDURE. PATIENT CONFIRMS NPO STATUS AND AGREES WITH SCHEDULED PROCEDURE. 3-LEAD EKG REVIEWED WITH PHYSICIAN PRIOR TO START OF PROCEDURE. MONITOR INTACT WITH CONTINUOUS PULSE OXIMETRY,CAPNOGRAPHY, 3-LEAD EKG, INTERMITTENT BP. SUPPLEMENTAL O2 TO BE TITRATED THROUGHOUT PROCEDURE TO MAINTAIN O2 SATURATION ABOVE 90%. PATIENT DETERMINED TO BE ASA APPROPRIATE FOR PROPOFOL SEDATION PRIOR TO START OF PROCEDURE BY .
--- NOTE | 2023-01-23 09:14 | NUR ---
REPORT RECIEVED. DR GUTIERREZ AT BEDSIDE. VSS ON ROOM AIR. PT RESTING WITH EYES CLOSED
--- NOTE | 2023-01-23 09:25 | NUR ---
PT TOLERING PO FLUIDS AND SITTING UP IN BED Discharge instructions reviewed with patient. Patient verbalizes understanding. Copy given to patient to take home. Ambulatory in Day Surgery Discharged via wheelchair to private car for ride home.
== END 2023-01-23 09:37 | disposition home or self-care (01) ==
LOC: ORSCMMR 07:10 → ORD 08:00 → ORSCMMR 08:00
PROVIDERS: Internal Medicine Gastroenterology
PROC: 0DBK8ZX Excision of Ascending Colon, Via Natural or Artificial Opening Endoscopic, Diagnostic (ICD-10-PCS; principal; 2023-01-23 08:00)
PROC: 0DBL8ZX Excision of Transverse Colon, Via Natural or Artificial Opening Endoscopic, Diagnostic (ICD-10-PCS; principal; 2023-01-23 08:00)
PROC: 0DBM8ZX Excision of Descending Colon, Via Natural or Artificial Opening Endoscopic, Diagnostic (ICD-10-PCS; principal; 2023-01-23 08:00)
DX: K63.5 Polyp of colon (principal); D12.3 Benign neoplasm of transverse colon; D12.2 Benign neoplasm of ascending colon; D12.4 Benign neoplasm of descending colon; Z86.010 Personal history of colon polyps; K57.30 Diverticulosis of large intestine without perforation or abscess without bleeding; E11.9 Type 2 diabetes mellitus without complications; I10 Essential (primary) hypertension; J44.9 Chronic obstructive pulmonary disease, unspecified; E03.9 Hypothyroidism, unspecified; Z79.84 Long term (current) use of oral hypoglycemic drugs; Z79.4 Long term (current) use of insulin; Z79.899 Other long term (current) drug therapy
CPT/HCPCS: 82947; 88305; J2704; J7120

== ENCOUNTER → 2023-06-05 | Outpatient (CLI) | payer OTHER | LOC: LAB SHORT 10:04 → LAB 10:04 | DX: J47.9 Bronchiectasis, uncomplicated (principal); Z22.39 Carrier of other specified bacterial diseases | CPT/HCPCS: 87070; 87077; 87186; 87205 ==

== ENCOUNTER → 2023-08-07 | Outpatient (CLI) | payer OTHER ==
[2023-08-07 19:04] LABS: BASOPHILS ABSOLUTE AUTO 0.09 K/mm3 (0.00-0.23); BASOPHILS PERCENT AUTO 1 % (0-2); EOSINOPHILS ABSOLUTE AUTO 0.13 K/mm3 (0.00-0.68); EOSINOPHILS PERCENT AUTO 1 % (0-6); Hematocrit 45.1 % (37.0-53.0); Hemoglobin 15.5 g/dL (13.5-17.5); IMMATURE GRAN ABSOLUTE AUTO 0.05 K/mm3 (0.00-0.10); IMMATURE GRAN PERCENT AUTO 1 % (0-1); LYMPHOCYTES ABSOLUTE AUTO 1.74 K/mm3 (0.84-5.20); LYMPHOCYTES PERCENT AUTO 18 % (21-46); MONOCYTES PERCENT AUTO 6 % (4-13); Mean Corpuscular HGB 30.7 pg (26.0-34.0); Mean Corpuscular HGB Conc 34.4 g/dL (31.5-36.5); Mean Corpuscular Volume 89 fL (80-100); Mean Platelet Volume 10.4 fL (9.1-12.4); NEUTROPHILS ABSOLUTE AUTO 6.92 K/mm3 (1.96-9.15); NEUTROPHILS PERCENT AUTO 73 % (41-73); Platelet Count 257 K/mm3 (150-400); RDW Coefficient Variation 13.5 % (11.7-14.2); RDW Standard Deviation 43.8 fL (35.1-46.3); Red Blood Cell Count 5.05 M/mm3 (4.30-5.90); White Blood Cell Count 9.53 K/mm3 (4.00-11.30)
[2023-08-07 19:40] LABS: Influenza A, PCR NEGATIVE (NEGATIVE); Influenza B, PCR NEGATIVE (NEGATIVE); Resp Syncytial Virus, PCR NEGATIVE (NEGATIVE); SARS-Cov-2 (COVID-19) PCR, MMC NEGATIVE (NEGATIVE)
[2023-08-09 08:10] LABS: BILIRUBIN, TOTAL 0.3 mg/dL (0.0-1.2); CALCIUM, SERUM 9.2 mg/dL (8.6-10.2); CREATININE, SERUM 1.12 mg/dL (0.76-1.27); GLOBULIN, TOTAL 2.3 g/dL (1.5-4.5); POTASSIUM, SERUM 3.8 mmol/L (3.5-5.2); PROTEIN, TOTAL, SERUM 6.9 g/dL (6.0-8.5)
== END | disposition home or self-care (01) ==
LOC: LAB SHORT 17:16
PROVIDERS: Family Medicine
DX: J15.1 Pneumonia due to Pseudomonas (principal)
CPT/HCPCS: 0241U; 80053; 85025

== ENCOUNTER → 2023-08-08 | Outpatient (CLI) | payer OTHER | END | disposition home or self-care (01) | LOC: LAB SHORT 10:20 → LAB 10:20 | DX: J15.1 Pneumonia due to Pseudomonas (principal) | CPT/HCPCS: 87070; 87077; 87186; 87205 ==

== ENCOUNTER → 2024-03-24 | Outpatient (CLI) | payer OTHER ==
[~2024-03-24] MED LIST changes: +ALBU2.5V5 INH; +Acetaminophen650 M1; +LOSARTAN-HCTZ1 EAC6 PO; +MIRALAX11910; +TAMS.4ER PO; +TOBRAMYCIN300 MG/10 INH; +TRAM50 PO
== END ==
LOC: LAB SHORT 12:28 → LAB 12:28 → LAB FUT 03-12 14:30
DX: J98.8 Other specified respiratory disorders (principal)
CPT/HCPCS: 87070; 87077; 87186; 87205

== ENCOUNTER 2024-11-03 06:23 | Day surgery (SDC) | payer OTHER ==
[~2024-11-03] VITALS: Ht 188 cm; Wt 112.2 kg
[2024-11-03 08:30] VITALS: BP 134/96
== END 2024-11-03 08:40 | disposition home or self-care (01) ==
LOC: ORSCMMR 06:23 → ORD 07:30 → ORSCMMR 07:30
PROC: 0DBL8ZX Excision of Transverse Colon, Via Natural or Artificial Opening Endoscopic, Diagnostic (ICD-10-PCS; principal; 2024-11-03)
PROC: 0DBK8ZX Excision of Ascending Colon, Via Natural or Artificial Opening Endoscopic, Diagnostic (ICD-10-PCS; principal; 2024-11-03)
DX: Z09 Encounter for follow-up examination after completed treatment for conditions other than malignant neoplasm (principal); Z86.0101 Personal history of adenomatous and serrated colon polyps; D12.3 Benign neoplasm of transverse colon; D12.2 Benign neoplasm of ascending colon; K57.30 Diverticulosis of large intestine without perforation or abscess without bleeding; E11.9 Type 2 diabetes mellitus without complications; I10 Essential (primary) hypertension; E03.9 Hypothyroidism, unspecified; Z79.899 Other long term (current) drug therapy

== ENCOUNTER → 2025-02-11 | Outpatient (CLI) | payer OTHER ==
[~2025-02-11] MED LIST changes: +AIRSUPRA 90-810.7 GM INH; +Carvedilol12.5 MG PO; +LOSA25 PO; +TRAZ100 PO
[2025-02-11 15:23] LABS: Creatinine, Urine Random 164.0 mg/dL (27.00-270.00); Microalb/Creat Ratio UR, Rand 60.976 mg/g (0.000-30.000); Microalbumin, Random Urine 100.0 mg/L (0.000-20.000)
== END ==
LOC: LAB 12:50 → LAB SHORT 12:50
PROVIDERS: Student in an Organized Health Care Education/Training Program
DX: E11.9 Type 2 diabetes mellitus without complications (principal)
CPT/HCPCS: 82043; 82570

== ENCOUNTER → 2025-05-09 | Outpatient (CLI) | payer OTHER ==
[2025-05-11 08:47] LABS: Microalbumin, Urine Quant. 85.6 mg/L (0.000-20.000); Protein, Urine Quantitative 20.9 mg/dL (0.0-11.9)
== END ==
LOC: LAB SHORT 09:30 → LAB 09:30 → LAB FUT 05-05 13:35
PROVIDERS: Internal Medicine Nephrology
DX: N18.30 Chronic kidney disease, stage 3 unspecified (principal); R94.6 Abnormal results of thyroid function studies; R94.5 Abnormal results of liver function studies; R76.9 Abnormal immunological finding in serum, unspecified; D75.1 Secondary polycythemia
CPT/HCPCS: 81050; 82043; 82570; 84156